=== PATIENT | male | born 2000 | race Native Hawaiian/Other Pacific Islander ===

== ENCOUNTER 2021-08-23 11:10 | Emergency (ER) | payer OTHER ==
[~2021-08-23] VITALS: Ht 172.7 cm; Wt 59.0 kg
[2021-08-23 11:18] VITALS: TEMP 97.1
[2021-08-23 12:38] VITALS: BP 118/75
== END 2021-08-23 12:39 | disposition home or self-care (01) ==
LOC: ED 11:10
DX: S90.221A Contusion of right lesser toe(s) with damage to nail, initial encounter (principal); W20.8XXA Other cause of strike by thrown, projected or falling object, initial encounter; Y92.89 Other specified places as the place of occurrence of the external cause
CPT/HCPCS: 90471; 90715; 99283; J1885

== ENCOUNTER 2022-09-14 15:04 | Emergency (ER) | payer OTHER ==
[~2022-09-14] VITALS: Ht 172.7 cm; Wt 59.0 kg
[2022-09-14 15:15] VITALS: BP 124/77; TEMP 98.6
== END 2022-09-14 18:40 | disposition home or self-care (01) ==
LOC: ED 15:04
DX: L03.114 Cellulitis of left upper limb (principal)
CPT/HCPCS: 96372; 99283; J1100